=== PATIENT | male | born 1990 | race Caucasian/White ===

== ENCOUNTER → 2019-05-03 | Outpatient (CLI) | payer BC ==
--- NOTE | ~2019-05-03 | EKG ---
[place], [place] ELECTROCARDIOGRAM REPORT NAME: IRVING DE LA PAZ UNIT #: [id number] ROOM: DOCTOR: EPIPHANY DRAFT REPORT BIRTHDATE: [birth year] [facility] Test Date: 2019-05-03 Test Time: 13:45:02 Pat Name: IRVING DE LA PAZ Department: Room: Gender: [employer]: Sarah Augustin : 1990 Requested By: IRVING SONI Order Number: [id number] Reading MD: Johnnie Kim MD Measurements Intervals [place] Rate: 59 P: 47 GA: 145 QRS: 68 QRSD: 95 T: 8 QT: 396 QTc: 393 Interpretive Statements Sinus bradycardia Minimal ST elev, probable normal early repol pattern Baseline wander in lead(s) V3 No previous ECG available for comparison Electronically Signed On 05-04-2019 4:46:57 PDT by Johnnie Kim MD CM:EKGRPT:ELECTROCARDIOGRAM REPORT [id number] IRVING SONI EPIPHJUAN DRAFT REPORT IRVING SONI
== END | disposition home or self-care (01) ==
LOC: CARD 13:34
DX: F90.9 Attention-deficit hyperactivity disorder, unspecified type (principal); Z79.899 Other long term (current) drug therapy